=== PATIENT | female | born 1980 | race Caucasian/White ===

== ENCOUNTER 2016-04-02 20:10 | Outpatient (CLI) | payer MEDICAID ==
[~2016-04-02] VITALS: Ht 154.9 cm; Wt 59.2 kg
[2016-04-02 20:34] VITALS: Ht 154.9 cm; Wt 59.2 kg
[2016-04-02 20:35] VITALS: BP 102/62; PULSE 85; RESP 18
[2016-04-02] MEDS ORDERED: CITRIC ACID/NA CITRATE 30 ML CUP PO ONE (22:00)
[2016-04-02] MEDS ORDERED: METOCLOPRAMIDE 10 MG INJ IM ONE (22:00)
[2016-04-02 22:27] LABS: ADD UMIC YES; URINE BILIRUBIN (Dip) NEGATIVE (NEGATIVE); URINE BLOOD (Dip) NEGATIVE (NEGATIVE); URINE COLOR LT. YELLOW (YELLOW); URINE GLUCOSE (Dip) NEGATIVE (NEGATIVE); URINE KETONES (Dip) NEGATIVE (NEGATIVE); URINE LEUKOCYTE ESTERASE (Dip) 1+ (NEGATIVE); URINE NITRITE (Dip) NEGATIVE (NEGATIVE); URINE TOTAL PROTEIN (Dip) NEGATIVE (NEGATIVE); URINE UROBILINOGEN (Dip) 0.2 E.U./dL (0.1-1.0)
[2016-04-02 22:39] LABS: BACTERIA,URINE FEW; SQUAMOUS EPITHELIAL CELL,UR MODERATE; URINE RBCS 0-2 /HPF (0)
--- NOTE | 2016-04-02 23:28 | QN ---
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 A2 with an IUP at 32w 3d c/o lower abdominal pain, vomiting, heartburn. No VB or leaking. 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 Anemia. PSHx: none. POBHx: x 2. NKDA. BP 102/62. T= 98.3. NST: baseline 150 bpm with accels to 18 bpm. No decels. No UC's. U/A negative. Pt was given IM Reglan and p.o. Bicitra and after one hour reported that she was feeling much better and was ready to go home. A: IUP at 32w 3d. GERD. P: Reviewed dietary considerations to minimize problems associated with excess acid. May take Tums and/or Zantac. Gave pt a note to stay off work tomorrow. D/C home. NST on 03/27. RADHA MCQUEEN MD Apr 02, 2016 23:27
== END 2016-04-02 23:25 | disposition home or self-care (01) ==
LOC: OBT 20:10 → L-D 20:12 → OBT 23:25
PROVIDERS: ATTEND Obstetrics & Gynecology
DX: O24.419 Gestational diabetes mellitus in pregnancy, unspecified control (principal); O21.2 Late vomiting of pregnancy; O26.893 Other specified pregnancy related conditions, third trimester; R10.30 Lower abdominal pain, unspecified; R12 Heartburn; Z3A.32 32 weeks gestation of pregnancy
CPT/HCPCS: 81001; 82962; 96372; J2765; Z7500; Z7610; 81003; G0463

== ENCOUNTER 2016-04-28 00:10 | Inpatient (IN) | payer MEDICAID ==
[~2016-04-28] VITALS: Ht 154.9 cm; Wt 61.4 kg
[~2016-04-28 00:10] MED LIST: DENIES
[2016-04-28 00:52] VITALS: Ht 154.9 cm; Wt 61.4 kg
[2016-04-28 00:53] VITALS: BP 103/63; PULSE 84; RESP 18
[2016-04-28] MEDS ORDERED: PREN1TAB62 PO (00:55)
[2016-04-28] MEDS ORDERED: LACTATED RINGER'S 1,000 ML IV SCH (00:57)
--- NOTE | 2016-04-28 02:19 | RADRPT ---
PROCEDURE: ULTRASOUND OBSTETRICAL CLINICAL INDICATION: 35-year-old female with contractions for amniotic fluid index evalua tion. TECHNIQUE: Multiple sonographic images of the pelvis were obtained. The images were reviewed on a PACS workstation. COMPARISON: No prior studies are available for comparison. FINDINGS: There is a single viable intrauterine gestation. Cardiac activity is present with 153 beats per min linda. There is a vertex presentation. The placenta is posterior. There is no evidence for an abruption or placenta previa. There is a normal amount of amniotic fluid with an ALISON = 10.6 cm. IMPRESSION: 1. Single viable intrauterine gestation with vertex presentation. 2. The amniotic fluid index equals 10.6 cm. .Emmanuel Lynne MD, MD Date Time Electronically viewed and signed by .Emmanuel Lynne MD, on 04/28/2016 02:19 .M/
[2016-04-28] MEDS ORDERED: LACTATED RINGER'S 1,000 ML IV PRN (02:30)
[2016-04-28 02:36] LABS: ADD UMIC YES; URINE BILIRUBIN (Dip) NEGATIVE (NEGATIVE); URINE BLOOD (Dip) 3+ (NEGATIVE); URINE GLUCOSE (Dip) NEGATIVE (NEGATIVE); URINE KETONES (Dip) NEGATIVE (NEGATIVE); URINE LEUKOCYTE ESTERASE (Dip) 2+ (NEGATIVE); URINE NITRITE (Dip) NEGATIVE (NEGATIVE); URINE TOTAL PROTEIN (Dip) TRACE (NEGATIVE); URINE UROBILINOGEN (Dip) 0.2 E.U./dL (0.1-1.0)
[2016-04-28 02:38] LABS: URINE COLOR AMBER (YELLOW)
[2016-04-28 02:48] LABS: BACTERIA,URINE MODERATE; SQUAMOUS EPITHELIAL CELL,UR MANY
[2016-04-28 03:23] LABS: ADD SCAN DIFF NO
[2016-04-28] MEDS ORDERED: MISOPROSTOL 200 MCG TAB PR PRN (03:30)
[2016-04-28] MEDS ORDERED: AMPICILLIN 2 GM/NS (PMX) 100 ML IV ONE (03:30)
[2016-04-28] MEDS ORDERED: CARBOPROST 250 MCG INJ IM PRN (03:30)
[2016-04-28] MEDS ORDERED: METHYLERGONOVINE 0.2 MG INJ IM PRN (03:30)
[2016-04-28] MEDS ORDERED: ACETAMINOPHEN/CODEINE #3 TAB PO PRN (03:30)
[2016-04-28] MEDS ORDERED: LIDOCAINE 1% (MPF) 30 ML INJ INJ PRN (03:30)
[2016-04-28] MEDS ORDERED: IBUPROFEN 600 MG TAB PO PRN (03:30)
[2016-04-28] MEDS ORDERED: BUTORPHANOL 2 MG INJ IV PRN ×2 (03:30)
[2016-04-28] MEDS ORDERED: OXYTOCIN 30 UNITS/LR 500 ML IV SCH ×2 (03:30)
[2016-04-28] MEDS ORDERED: OXYTOCIN 30 UNITS/LR 500 ML IV PRN (03:30)
[2016-04-28 03:38] LABS: BASOPHILS % 0.3 % (0.0-2.0); EOSINOPHILS # 0.2 10^3/ul (0.0-0.5); EOSINOPHILS % 2.2 % (0.0-7.0); HEMATOCRIT 35.5 % (37.0-47.0); HEMOGLOBIN 12.3 g/dl (12.0-16.0); LYMPHOCYTES # 2.1 10^3/ul (0.8-2.9); LYMPHOCYTES % 21.8 % (15.0-51.0); MEAN CORPUSCULAR HEMOGLOBIN 33.2 pg (29.0-33.0); MEAN CORPUSCULAR HGB CONC 34.6 g/dl (32.0-37.0); MEAN CORPUSCULAR VOLUME 95.7 fl (82.0-101.0); MEAN PLATELET VOLUME 10.7 fl (7.4-10.4); MONOCYTE # 0.9 10^3/ul (0.3-0.9); MONOCYTES % 9.7 % (0.0-11.0); NEUTROPHIL # 5.9 10^3/ul (1.6-7.5); PLATELET COUNT 221 10^3/UL (140-415); RED BLOOD COUNT 3.71 10^6/ul (4.20-5.40); RED CELL DISTRIBUTION WIDTH 12.8 % (11.5-14.5); WHITE BLOOD COUNT 9.5 10^3/ul (4.8-10.8)
[2016-04-28 03:45] LABS: INR 0.89; PT RATIO 0.9
[2016-04-28 03:46] LABS: PARTIAL THROMBOPLASTIN TIME 25.8 Sec (25.0-35.0)
[2016-04-28 03:47] LABS: ALBUMIN 3.1 g/dl (3.3-4.9); CHLORIDE 107 mmol/L (97-110); SODIUM 138 mmol/L (135-144)
[2016-04-28 03:50] LABS: ALANINE AMINOTRANSFERASE 13 IU/L (13-69); ALBUMIN/GLOBULIN RATIO 1.03; ALKALINE PHOSPHATASE 139 IU/L (42-121); ANION GAP 14 (8-16); ASPARTATE AMINO TRANSFERASE 18 IU/L (15-46); BILIRUBIN,INDIRECT 0.1 mg/dl (0-1.1); BILIRUBIN,TOTAL 0.1 mg/dl (0.2-1.3); BLOOD UREA NITROGEN 9 mg/dl (7-20); CARBON DIOXIDE 21 mmol/L (21-31); CREATININE 0.45 mg/dl (0.44-1.00); GLUCOSE 113 mg/dl (70-220); TOTAL PROTEIN 6.1 g/dl (6.1-8.1)
[2016-04-28 03:51] LABS: CALCIUM 9.3 mg/dl (8.4-10.2)
--- NOTE | 2016-04-28 06:41 | HP ---
Date/Time of Note Date/Time of Note DATE: 04/28/16 TIME: 06:35 OB - History Hx of Present Free Text/Dictation 35 y/o with SIUP at 36 1/7 weeks presents with a chief complaint of ucs , possible leakage of fluid and vaginal bleeding . She has been receiving her care with Dr. Garnica. She states good movement. She denies nausea, vomiting, shortness of breath, chest pain, and abdominal pain between contractions, headache, visual changes. Past Family/Social History * Past Medical, Surgical, Family and Obstetric Histories reviewed from chart. OB Admission Exam Vital Signs Vital Signs Vital Signs Date Time Temp Pulse Resp B/P Pulse Ox O2 Delivery O2 Flow Rate FiO2 04/28/16 00:53 98.7 84 18 103/63 Room Air Physical Exam HEENT: WNL Heart: Rhythm Normal Lungs: Clear Abdomen: WNL Extremities: Normal Cervical Dilatation: 2cm Effacement: 50% Station: -3 Membranes: Ruptured (ROM+ is positive) Amniotic Fluid: Clear Heart Rate: 140's Accelerations: Accelerations Present Decelerations: No Decelerations Varibility: Moderate Contractions on Admission: < 5 Minutes Apart Intensity: Moderate Last 72 hours Lab Results CBC & BMP 04/28/16 02:53 Liver Function Test 04/28/16 02:53 Alanine Aminotransferase (ALT/SGPT) 13 Albumin 3.1 L Alkaline Phosphatase 139 H Aspartate Amino Transf (AST/SGOT) 18 Direct Bilirubin 0.00 Total Protein 6.1 OB Assessment/Plan Other plan: 35 y/o with SIUP at 36 1/7 weeks with PPROM in labor - FHR: No sign of metabolic acidosis- Category I - Continious EFM, toco - CBC, blood type and screen - Analgesia options with R/B/A discussed in detail with patient - Epidural per patient request - Please see the orders - Obtain record, ampicillin for GBS prophylaxis until get the result Admission, procedures, expectations, risks and possible complications have been discussed in detail with the patient. Risk of vaginal delivery including but not limited to bleeding, infection, cervical laceration, placental retention, injury to fetus, blood transfusion, blood transfusion related infection, risk of anesthesia, adhesion, cervical laceration, episiotomy/laceration, possible delivery with risk of bleeding, infection, injury to other organs ( bowel, bladder, ureter, vessels, nerves), injury to fetus, blood transfusion, blood transfusion related infection, risk of anesthesia, scar and hernia formation, needs for future , removal of uterus or any other indicated surgery discussed with the patient. She expressed understanding and repeats the risks. All of her questions were answered; all appropriate consents will be signed. PHYSICIAN'S VERIFICATION OF INFORMED CONSENT: The patient was counseled regarding the procedure, its indications, risks, potential complications and alternatives and any questions were answered. Consent was obtained. PLANNED PROCEDURE/TREATMENT: Vaginal delivery with possible vacuum/forceps delivery episiotomy, repair of laceration possible delivery PHYSICIAN'S VERIFICATION OF INFORMED CONSENT FOR BLOOD TRANSFUSION: There is a reasonable possibility that blood transfusion will be necessary as a result of the patient's procedure. I have discussed the following with the patient/patient's legal sales representative metals: An explanation of the benefits and risks of the transfusion of blood or blood products and the possible alternatives. Al questions have been answered to the patient's/patients legal representatives satisfaction. INFORMED CONSENT: The patient has been informed of: - The nature of the proposed care, treatment, services, medic- Potential benefits, risks or side effects, including potential problems related to recuperation. - The likelihood of achieving care treatment and service goals. - Reasonable alternatives to the proposed care, treatment and service. - The relevant risks, benefits and side effects related to alternatives, including the possible results of not receiving care, treatment and services. - When indicated, any limitations on the confidentiality of information learned from or about the patient. - If appropriate, the risks, benefits and alternatives of the drugs to be used for sedation/analgesia including moderate sedation. - If appropriate, patient has been provided information on the risks, benefits and alternatives to the transfusion of blood and/or blood products. SUYAPA CROSS Apr 28, 2016 06:41
[2016-04-28] MEDS: AMPICILLIN 1 GM/NS (PMX) 50 ML IV SCH ×3 (08:57→15:30)
[2016-04-28] MEDS: LACTATED RINGER'S 1,000 ML IV SCH ×3 (11:01→23:11)
[2016-04-29] MEDS: LACTATED RINGER'S 1,000 ML IV SCH ×3 (05:25→19:01)
--- NOTE | 2016-04-29 13:32 | RADRPT ---
PROCEDURE: OB ultrasound (limited) CLINICAL INDICATION: Pain, evaluate for placental abruption TECHNIQUE: Limited sonographic evaluation of the gravid uterus was performed. Transabdominal imag ing was performed. COMPARISON: Ultrasound, 04/28/2016 FINDINGS: Single intrauterine gestation is seen in cephalic position. Placenta is posterior fundal without ev idence for abruption or previa. Three-vessel cord is noted. heart rate is 152 bpm. ALISON ryan ures 15.3 cm, within normal limits. IMPRESSION: 1. Single live intrauterine gestation, as above. 2. No evidence of placental abruption is identified. RPTAT: EE .Winston Wallis MD, MD Date Time Electronically viewed and signed by .Winston Wallis MD, on 04/29/2016 13:32 .R/
[2016-04-29] MEDS: DEXTROSE 5%-LR 1,000 ML IV SCH (15:34)
[2016-04-29 15:39] LABS: RUBELLA ANTIBODY - IGG 2.11 index
[2016-04-30] MEDS: DEXTROSE 5%-LR 1,000 ML IV SCH ×4 (02:27→22:09)
[2016-04-30] MEDS: LACTATED RINGER'S 1,000 ML IV SCH ×3 (03:01→19:14)
[2016-04-30] MEDS ORDERED: AMPICILLIN 2 GM/NS (PMX) 100 ML IV ONE (09:00)
[2016-04-30] MEDS ORDERED: OXYTOCIN 30 UNITS/LR 500 ML IV SCH (09:00)
[2016-04-30] MEDS: AMPICILLIN 1 GM/NS (PMX) 50 ML IV SCH ×3 (13:45→21:03)
[2016-04-30] MEDS ORDERED: FENTAnyl 2MCG/ML-ROPIV 0.2% 100 ML ONE (15:52)
[2016-04-30] MEDS ORDERED: ONDANSETRON 4 MG INJ IV PRN (17:30)
[2016-04-30] MEDS ORDERED: DIPHENHYDRAMINE 50 MG INJ IV PRN (17:30)
[2016-04-30] MEDS ORDERED: NALOXONE (0.4 MG/ML) INJ IV PRN (17:30)
[2016-04-30] MEDS: FENTAnyl 2MCG/ML-ROPIV 0.2% 100 ML BAG EPI SCH (17:31)
[2016-05-01] MEDS: FENTAnyl 2MCG/ML-ROPIV 0.2% 100 ML BAG EPI SCH ×2 (01:03→09:10)
[2016-05-01] MEDS: AMPICILLIN 1 GM/NS (PMX) 50 ML IV SCH ×5 (01:24→17:22)
[2016-05-01] MEDS: DEXTROSE 5%-LR 1,000 ML IV SCH ×3 (02:21→14:05)
--- NOTE | 2016-05-01 17:49 | LDN ---
Date/Time of Note Date/Time of Note DATE: 05/01/16 TIME: 17:48 Delivery Summary NSD, OF 36 WEEKS Placenta Delivered: Spontaneously Meconium: none Perineum intact?: Yes Anesthesia type: Epidural Estimated blood loss: 350 Sponge & Needle done & correct: Yes All needle counts correct: Yes Any foreign bodies felt in the: No Problems: DARA MORALES MD May 01, 2016 17:49
[2016-05-01] MEDS ORDERED: IBUPROFEN 600 MG TAB PO ONE (19:00)
[2016-05-01 22:00] VITALS: BP 126/79; PULSE 72; RESP 18
[2016-05-01] MEDS: LACTATED RINGER'S 1,000 ML IV* SCH (22:07)
[2016-05-01] MEDS ORDERED: OXYTOCIN 30 UNITS/LR 500 ML IV PRN (22:30)
[2016-05-01] MEDS ORDERED: WITCH HAZEL/GLYCERIN PAD PR PRN (22:30)
[2016-05-01] MEDS ORDERED: BENZOCAINE 20% 56 ML SPRAY TOP PRN (22:30)
[2016-05-01] MEDS ORDERED: ACETAMINOPHEN/CODEINE #3 TAB PO PRN (22:30)
[2016-05-01] MEDS ORDERED: MISOPROSTOL 200 MCG TAB PR PRN (22:30)
[2016-05-01] MEDS ORDERED: MAGNESIUM HYDROXIDE 30ML CUP PO PRN (22:30)
[2016-05-01] MEDS ORDERED: ZOLPIDEM 5 MG TAB PO PRN (22:30)
[2016-05-01] MEDS ORDERED: ACETAMINOPHEN 325 MG TAB PO PRN (22:30)
[2016-05-01] MEDS ORDERED: METHYLERGONOVINE 0.2 MG INJ IM PRN (22:30)
[2016-05-01] MEDS ORDERED: DIPHENHYDRAMINE 25 MG CAP PO PRN (22:30)
[2016-05-01] MEDS ORDERED: CARBOPROST 250 MCG INJ IM PRN (22:30)
[2016-05-01] MEDS ORDERED: LANOLIN 7 GM TUBE TOP PRN (22:30)
[2016-05-01] MEDS: OXYTOCIN 30 UNITS/LR 500 ML IV SCH (22:39)
[2016-05-02] MEDS: IBUPROFEN 800 MG TAB PO SCH ×4 (00:23→17:21)
[2016-05-02] MEDS: OXYTOCIN 30 UNITS/LR 500 ML IV SCH (03:15)
[2016-05-02 03:40] VITALS: BP 108/72; PULSE 67; RESP 18
[2016-05-02] MEDS: LACTATED RINGER'S 1,000 ML IV* SCH (06:07)
[2016-05-02 07:30] VITALS: BP 104/65; PULSE 68; RESP 16
[2016-05-02 07:40] LABS: ADD SCAN DIFF NO
[2016-05-02 07:45] LABS: BASOPHILS % 0.1 % (0.0-2.0); EOSINOPHILS # 0.2 10^3/ul (0.0-0.5); EOSINOPHILS % 1.2 % (0.0-7.0); HEMOGLOBIN 10.6 g/dl (12.0-16.0); LYMPHOCYTES # 2.2 10^3/ul (0.8-2.9); LYMPHOCYTES % 17.1 % (15.0-51.0); MEAN CORPUSCULAR HGB CONC 34.2 g/dl (32.0-37.0); MEAN CORPUSCULAR VOLUME 96.6 fl (82.0-101.0); MEAN PLATELET VOLUME 11.2 fl (7.4-10.4); MONOCYTE # 0.9 10^3/ul (0.3-0.9); MONOCYTES % 7.3 % (0.0-11.0); NEUTROPHIL # 9.4 10^3/ul (1.6-7.5); NEUTROPHILS % 73.2 % (39.0-77.0); PLATELET COUNT 155 10^3/UL (140-415); RED BLOOD COUNT 3.21 10^6/ul (4.20-5.40); RED CELL DISTRIBUTION WIDTH 12.7 % (11.5-14.5); WHITE BLOOD COUNT 12.9 10^3/ul (4.8-10.8)
[2016-05-02] MEDS: SENNA/DOCUSATE NA (8.6MG/50MG) TAB PO PRN (08:56)
[2016-05-02 15:32] VITALS: BP 105/59; PULSE 75
--- NOTE | 2016-05-02 17:10 | QN ---
Documentation Comment PPD #1 Doing well and no complaints. +. T= 98.1 BP 105/59 Fundus firm. Lochia minimal. Ext NT, 1+ edema. WBC 12.9 Hgb 10.6 P; D/c tomorrow. RADHA MCQUEEN MD May 02, 2016 17:10
[2016-05-02 20:00] VITALS: BP 118/70; PULSE 75; RESP 18
[2016-05-03] MEDS: IBUPROFEN 800 MG TAB PO SCH ×4 (01:07→11:21)
[2016-05-03 04:00] VITALS: BP 100/57; PULSE 84; RESP 18
[2016-05-03 07:30] VITALS: BP 105/62; PULSE 72; RESP 18
[2016-05-03] MEDS: SENNA/DOCUSATE NA (8.6MG/50MG) TAB PO PRN (08:55)
[2016-05-03] MEDS ORDERED: DIPHTH/TET/ACEL PERTUSS (ADULT) 0.5 ML VIAL IM* ONE (09:00)
[2016-05-03] MEDS ORDERED: VARICELLA VACCINE LIVE/PF 1,350 UNIT/0.5 ML ML SC* ONE (09:00)
[2016-05-03] MEDS ORDERED: MEASLES,MUMPS,RUBELLA VACCINE INJ SC* ONE (09:00)
--- NOTE | 2016-05-03 09:23 | PD.PPDC ---
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
--- NOTE | 2016-05-03 09:25 | DS ---
Date/Time of Note Date/Time of Note DATE: 05/03/16 TIME: 09:23 Obstetrical Discharge Record Final Diagnosis Final Diagnosis: Term delivered Vaginal Delivery Obstetrical Delivery: Spontaneous Complications Gestational Diabetes Induction: Yes Condition on Discharge Physical Assessment Last Vitals: T=98.4 BP 100/57 Voiding: Yes Bowel Movement: Yes Breast: Soft, non-tender Fundus: Firm Calf Tenderness: No Patient Condition: Good RADHA MCQUEEN MD May 03, 2016 09:24
== END 2016-05-03 15:00 | disposition home or self-care (01) | DRG 775 ==
LOC: L-D 00:10 → OBT 00:10 → L-D 00:31 → OBT 04:05 → L-D 04:05 → PP1 05-01 22:01
PROVIDERS: ADMIT Obstetrics & Gynecology; ATTEND Obstetrics & Gynecology
PROC: 10E0XZZ Delivery of Products of Conception, External Approach (ICD-10-PCS; principal; 2016-05-01)
DX: O60.14X0 Preterm labor third trimester with preterm delivery third trimester, not applicable or unspecified (principal); Z37.0 Single live birth; Z3A.36 36 weeks gestation of pregnancy
CPT/HCPCS: 62319; 76815; 80053; 81001; 81003; 82962; 83036; 84112; 85014; 85018; 85025; 85610; 85730; 86592; 86703; 86762; 86850; 86900; 86901; 87086; 87340; 90715; 90716; 96360; G0463; J0290; J2590; J3010; J7120; J7121